=== PATIENT | male | born 1955 | race Caucasian/White ===

== ENCOUNTER 2020-08-01 10:42 | Emergency (ER) | payer OTHER ==
[~2020-08-01] VITALS: Ht 177.8 cm; Wt 84.4 kg
[2020-08-01] MEDS ORDERED: TAMS0.4C PO (10:49)
[2020-08-01] MEDS ORDERED: IRBESARTAN150 MG PO (10:49)
[2020-08-01] MEDS ORDERED: BACTRIM DS TAB1 EACH PO (15:40)
== END 2020-08-01 16:18 | disposition home or self-care (01) ==
LOC: ER 10:42
DX: N40.1 Benign prostatic hyperplasia with lower urinary tract symptoms (principal); R33.8 Other retention of urine; N39.0 Urinary tract infection, site not specified; B96.29 Other Escherichia coli [E. coli] as the cause of diseases classified elsewhere; R31.29 Other microscopic hematuria